=== PATIENT | female | born 1950 | race Caucasian/White ===

== ENCOUNTER 2018-03-30 10:24 | Day surgery (SDC) | payer MEDICARE ==
[~2018-03-30] VITALS: Ht 163.8 cm; Wt 113.6 kg
[~2018-03-30 10:24] MED LIST: LOSA25TA6 PO; MELO15TA24 PO
[2018-03-30 10:55] VITALS: BP 162/97
[2018-03-30] MEDS ORDERED: LACTATED RINGERS 1,000 ML IV SCH (10:59)
[2018-03-30] MEDS ORDERED: MULTIVITAMIN PO (11:00)
[2018-03-30] MEDS ORDERED: ASPIRIN PO (11:00)
[2018-03-30 11:40] LABS: ALANINE AMINOTRANSFERASE 32 U/L (12-78); ALBUMIN 3.5 g/dL (3.4-5.0); ANION GAP 8 mmol/L (5-15); CALCIUM 8.5 mg/dL (8.5-10.1); CHLORIDE 109 mmol/L (98-107); CREATININE 0.99 mg/dL (0.55-1.02)
[2018-03-30 11:43] LABS: ALKALINE PHOSPHATASE 75 U/L (45-117); BILIRUBIN,TOTAL 0.8 mg/dL (0.2-1.0); TOTAL PROTEIN 6.7 g/dL (6.4-8.2)
[2018-03-30] MEDS ORDERED: MIDAZOLAM 1 MG/ML, 2ML ONE (13:26)
[2018-03-30] MEDS ORDERED: FENTANYL PF 100 MCG/2ML ONE (13:26)
[2018-03-30] MEDS ORDERED: PROPOFOL 10 MG/ML, 20ML ONE (13:33)
[2018-03-30] MEDS ORDERED: CEFAZOLIN 1,000 MG ONE (13:33)
[2018-03-30] MEDS ORDERED: KETOROLAC 30 MG/1 ML ONE (13:33)
[2018-03-30] MEDS ORDERED: ONDANSETRON 2MG/ML, 2ML ONE (13:33)
[2018-03-30] MEDS ORDERED: DEXAMETHASONE 4 MG/ML, 5ML ONE (13:33)
[2018-03-30] MEDS ORDERED: HYDROmorphone 1 MG/ML, 1ML IV PRN (14:00)
[2018-03-30] MEDS ORDERED: PROMETHAZINE 25 MG/ML, 1ML IV PRN (14:00)
[2018-03-30] MEDS ORDERED: FENTANYL PF 100 MCG/2ML IV PRN (14:00)
[2018-03-30] MEDS ORDERED: hydrALAzine 20 MG/ML, 1ML IV PRN (14:00)
[2018-03-30] MEDS ORDERED: OXYcodone 5 MG/5 ML ORAL.SOL UDC PO PRN (14:00)
[2018-03-30] MEDS ORDERED: LORazepam 2 MG/ML, 1ML IVPush PRN (14:00)
[2018-03-30] MEDS ORDERED: LABETALOL 5MG/ML, 20ML IV PRN (14:00)
[2018-03-30] MEDS ORDERED: ACETAMINOPHEN 325 MG TABLET PO PRN (14:00)
[2018-03-30] MEDS ORDERED: HALOPERIDOL 5 MG/ML IV PRN (14:00)
[2018-03-30] MEDS ORDERED: MEPERIDINE/PF 25MG/0.5ML IVPush PRN (14:00)
== END 2018-03-30 16:45 | disposition home or self-care (01) ==
LOC: OUT 10:24
PROVIDERS: ATTEND Surgery
DX: M79.89 Other specified soft tissue disorders (principal); I10 Essential (primary) hypertension; E66.01 Morbid (severe) obesity due to excess calories; Z87.39 Personal history of other diseases of the musculoskeletal system and connective tissue; Z88.0 Allergy status to penicillin; Z91.013 Allergy to seafood; Z72.89 Other problems related to lifestyle
CPT/HCPCS: 27337; 36415; 80053; 88304; 93005; J0690; J1100; J1885; J2405; J2704; J7120; 88305; J2250; J3010